=== PATIENT | male | born 1950 | race Caucasian/White ===

== ENCOUNTER 2019-02-28 21:29 | Emergency (ER) | payer OTHER ==
[2019-02-28] MEDS ORDERED: FENTANYL CITR 100 MCG/2 ML ONE (22:18)
[2019-02-28] MEDS ORDERED: NA CHLORIDE 0.9% 1,000 ML ONE (22:19)
[2019-02-28] MEDS ORDERED: KETOROLAC 30 MG/ML INJ ONE (22:19)
[2019-02-28 22:26] LABS: Urine Bacteria 20-50 /HPF (NONE SEEN); Urine Culture Reflex Order REFLEXED; Urine Mucus 2+ /HPF (NONE SEEN); Urine RBC >50 /HPF (NONE SEEN)
[2019-02-28 22:30] LABS: Urine Blood 2+ (NEG); Urine Glucose NEGATIVE (NEG); Urine Protein NEGATIVE (NEG); Urine Specific Gravity 1.025 (1.005-1.030)
[2019-02-28] MEDS ORDERED: CIPROFLOXACIN 400mg IV 400 MG/200 ML BAG IV ONE (22:59)
[2019-03-01] MEDS ORDERED: FENTANYL CITR 100 MCG/2 ML ONE (00:49)
--- NOTE | 2019-03-01 00:59 | ER ---
Nurse's Notes [facility] Name: Markos Hooks Age: 68 yrs Sex: Male : 1950 Arrival Date: 02/28/2019 Time: 21:32 Bed 8 Private MD: Diagnosis: Unspecified renal colic;Urinary tract infection, site not specified Presentation: 02/28 21:39 Presenting complaint: Patient states: "I started hurting in my right side around 3:00 aj1 and its gotten continually worse. I can't pee much, it kind of feels like a kidney stone". Transition of care: patient was not received from another setting of care. Onset of symptoms was February 28, 2019. Risk Assessment: Do you want to hurt yourself or someone else? Patient reports no desire to harm self or others. Initial Sepsis Screen: Does the patient meet any 2 criteria? No. Patient's initial sepsis screen is negative. Does the patient have a suspected source of infection? No. Patient's initial sepsis screen is negative. Care prior to arrival: None. 21:39 Method Of Arrival: Ambulatory aj1 21:39 Acuity: LADARIUS 3 aj1 Triage Assessment: 21:42 General: Appears in no apparent distress. uncomfortable, Behavior is calm, cooperative, aj1 appropriate for age. Pain: Pain currently is 10 out of 10 on a pain scale. Neuro: Level of Consciousness is awake, alert, obeys commands. Cardiovascular: Patient's skin is warm and dry. Respiratory: Airway is patent Respiratory effort is even, unlabored, Respiratory pattern is regular, symmetrical. GI:. : Reports inability to void. Historical: - Allergies: 21:42 No Known Allergies; aj1 - Home Meds: 21:42 amlodipine 5 mg tab 1 tab once daily [Active]; cholesterol medication [Active]; "heart aj1 burn medicine that starts with L" [Active]; - PMHx: 21:42 Hypertension; Hyperlipidemia; GERD; "fluid on the lung"; Diverticulitis; aj1 - PSHx: 21:42 Cholecystectomy; aj1 - Immunization history:: Flu vaccine is up to date. - Social history:: Smoking status: Patient/guardian denies using tobacco. - Ebola Screening: : Patient denies travel to an Ebola-affected area in the 21 days before illness onset. Screenin:31 Abuse screen: Denies threats or abuse. Nutritional screening: No deficits noted. ea Tuberculosis screening: No symptoms or risk factors identified. Fall Risk IV access (20 points). Assessment: 22:00 General: Appears uncomfortable, Behavior is calm, cooperative, appropriate for age. ea Pain: Complains of pain in right lower quadrant. Neuro: Level of Consciousness is awake, alert, obeys commands, Oriented to person, place, time, situation. Cardiovascular: Patient's skin is warm and dry. Respiratory: Airway is patent Respiratory effort is even, unlabored, Respiratory pattern is regular, symmetrical. Derm: Skin is pink, warm \\T\\ dry. 22:15 Reassessment: Patient and/or family updated on plan of care and expected duration. Pain ea level reassessed. Pt went to restroom reported relief after after urinating. States " the pain is there but it is 100 times better than it was". 23:11 Reassessment: Patient and/or family updated on plan of care and expected duration. Pain ea level reassessed. Patient is alert, oriented x 3, equal unlabored respirations, skin warm/dry/pink. Patient states feeling better. Patient states symptoms have improved. 03/01 00:28 Reassessment: Patient and/or family updated on plan of care and expected duration. Pain ea level reassessed. Patient is alert, oriented x 3, equal unlabored respirations, skin warm/dry/pink. Awaiting on CT results. 01:22 Reassessment: Patient and/or family updated on plan of care and expected duration. Pain ea level reassessed. Patient is alert, oriented x 3, equal unlabored respirations, skin warm/dry/pink. Discharge instruction given to patient, verbalized the understanding of instruction. Pt left ED ambulatory, accompanied by family, pttolerating well Patient states feeling better. Patient states symptoms have improved. Vital Signs: 02/28 21:42 BP 173 / 93; Pulse 81; Resp 18; Temp 97.5; Pulse Ox 96% on R/A; Weight 93.44 kg (R); aj1 Height 5 ft. 8 in. (172.72 cm) (R); Pain 10; 23:05 BP 146 / 72; Pulse 72; Resp 18; Pulse Ox 95% on R/A; ea 03/01 00:27 BP 139 / 67; Pulse 63; Resp 18; Pulse Ox 98% on R/A; ea 01:00 BP 130 / 60; Pulse 60; Resp 18; Temp 97.6; Pulse Ox 100% ; ea 02/28 21:42 Body Mass Index 31.32 (93.44 kg, 172.72 cm) aj1 ED Course: 02/28 21:32 Patient arrived in ED. cl3 21:40 Triage completed. aj1 21:42 Arm band placed on Patient placed in an exam room. aj1 21:46 Miranda Thomas FNP-C is PHCP. snw 21:46 Pelon Balbuena MD is Attending Physician. snw 21:58 Carleen Pearce RN is Primary Nurse. ea 22:30 Inserted saline lock: 20 gauge in right antecubital area, using aseptic technique. ea 22:32 Patient has correct armband on for positive identification. Bed in low position. Call ea light in reach. Side rails up X2. 23:00 CT Stone Protocol In Process Unspecified. EDMS 03/01 01:23 No provider procedures requiring assistance completed. IV discontinued, intact, ea bleeding controlled, No redness/swelling at site. Pressure dressing applied. Administered Medications: 02/28 22:30 Drug: TORadol 30 mg Route: IVP; Site: right antecubital; ea 22:50 Follow up: Response: No adverse reaction; Pain is decreased ea 22:31 Drug: NS 0.9% 1000 ml Route: IV; Rate: 1 bolus; Site: right antecubital; ea 03/01 01:00 Follow up: Response: No adverse reaction; IV Status: Completed infusion; IV Intake: ea 1000ml 02/28 22:31 Drug: fentaNYL (PF) 50 mcg {Note: RASS 1.} Route: IVP; Site: right antecubital; ea 03/01 00:56 Follow up: Response: No adverse reaction; Pain is decreased; RASS: Alert and Calm (0) ea 02/28 23:05 Drug: Cipro 400 mg Volume: 200 ml; Route: IVPB; Infused Over: 60 mins; Site: right ea antecubital; 03/01 01:13 Follow up: Response: No adverse reaction; IV Status: Completed infusion; IV Intake: ea 100ml 00:55 Drug: fentaNYL (PF) 50 mcg {Note: RASS 1 .} Route: IVP; Site: right antecubital; ea 01:20 Follow up: Response: No adverse reaction; Pain is decreased; RASS: Alert and Calm (0) ea Intake: 01:00 IV: 1000ml; Total: 1000ml. ea 01:13 IV: 100ml; Total: 1100ml. ea Outcome: 00:59 Discharge ordered by . snjennifer 01:23 Discharged to home ambulatory. ea 01:23 Condition: stable 01:23 Discharge instructions given to patient, Instructed on discharge instructions, follow up and referral plans. medication usage, Demonstrated understanding of instructions, follow-up care, medications. 01:23 Prescriptions given X 3. 01:24 Patient left the ED. ea Signatures: Dispatcher [employer] EDVandana Crain RN RN aj1 Miranda Thomas, [employer] Carleen Pearce RN RN ea Lewis, Charde cl3 Corrections: (The following items were deleted from the chart) 00:56 02/28 22:31 fentaNYL (PF) 50 mcg IVP in right antecubital ea ea 03/01 00:56 11 22:50 Response: No adverse reaction; Pain is decreased ea ea
--- NOTE | 2019-03-01 01:00 | EDPHYS ---
Physician Documentation [facility] Name: Markos Hooks Age: 68 yrs Sex: Male : 1950 Arrival Date: 02/28/2019 Time: 21:32 Bed 8 Private MD: ED Physician Pelon Balbuena HPI: 02/28 22:11 This 68 yrs old Male presents to ER via Ambulatory with complaints of snw Possible Kidney Stone. 22:11 Onset: The symptoms/episode began/occurred suddenly, today. Associated signs and snw symptoms: Pertinent positives: abdominal pain. Modifying factors: The patient symptoms are alleviated by nothing. The patient has not experienced similar symptoms in the past. The patient has not recently seen a physician. pt has had an appendectomy, right VATS procedure, cholecystectomy. Historical: - Allergies: 21:42 No Known Allergies; aj1 - Home Meds: 21:42 amlodipine 5 mg tab 1 tab once daily [Active]; cholesterol medication [Active]; "heart aj1 burn medicine that starts with L" [Active]; - PMHx: 21:42 Hypertension; Hyperlipidemia; GERD; "fluid on the lung"; Diverticulitis; aj1 - PSHx: 21:42 Cholecystectomy; aj1 - Immunization history:: Flu vaccine is up to date. - Social history:: Smoking status: Patient/guardian denies using tobacco. - Ebola Screening: : Patient denies travel to an Ebola-affected area in the 21 days before illness onset. ROS: 22:10 Constitutional: Negative for fever, chills, and weight loss, Eyes: Negative for injury, snw pain, redness, and discharge, ENT: Negative for injury, pain, and discharge, Neck: Negative for injury, pain, and swelling, Cardiovascular: Negative for chest pain, palpitations, and edema, Respiratory: Negative for shortness of breath, cough, wheezing, and pleuritic chest pain, Back: Negative for injury and pain, : Negative for injury, bleeding, discharge, and swelling, MS/Extremity: Negative for injury and deformity, Skin: Negative for injury, rash, and discoloration, Neuro: Negative for headache, weakness, numbness, tingling, and seizure, Psych: Negative for depression, anxiety, suicide ideation, homicidal ideation, and hallucinations. 22:10 Abdomen/GI: Positive for abdominal pain, of the right lower quadrant, radiation to right scrotal area. Exam: 22:10 Constitutional: This is a well developed, well nourished patient who is awake, alert, snw and in no acute distress. Head/Face: Normocephalic, atraumatic. Eyes: Pupils equal round and reactive to light, extra-ocular motions intact. Lids and lashes normal. Conjunctiva and sclera are non-icteric and not injected. Cornea within normal limits. Periorbital areas with no swelling, redness, or edema. ENT: Nares patent. No nasal discharge, no septal abnormalities noted. Tympanic membranes are normal and external auditory canals are clear. Oropharynx with no redness, swelling, or masses, exudates, or evidence of obstruction, uvula midline. Mucous membranes moist. Neck: Trachea midline, no thyromegaly or masses palpated, and no cervical lymphadenopathy. Supple, full range of motion without nuchal rigidity, or vertebral point tenderness. No Meningismus. Chest/axilla: Normal chest wall appearance and motion. Nontender with no deformity. No lesions are appreciated. Cardiovascular: Regular rate and rhythm with a normal S1 and S2. No gallops, murmurs, or rubs. Normal PMI, no JVD. No pulse deficits. Respiratory: Lungs have equal breath sounds bilaterally, clear to auscultation and percussion. No rales, rhonchi or wheezes noted. No increased work of breathing, no retractions or nasal flaring. Back: No spinal tenderness. No costovertebral tenderness. Full range of motion. Skin: Warm, dry with normal turgor. Normal color with no rashes, no lesions, and no evidence of cellulitis. MS/ Extremity: Pulses equal, no cyanosis. Neurovascular intact. Full, normal range of motion. Neuro: Awake and alert, GCS 15, oriented to person, place, time, and situation. Cranial nerves II-XII grossly intact. Motor strength 5/5 in all extremities. Sensory grossly intact. Cerebellar exam normal. Normal gait. Psych: Awake, alert, with orientation to person, place and time. Behavior, mood, and affect are within normal limits. 22:10 Abdomen/GI: Inspection: obese Bowel sounds: normal, Palpation: moderate abdominal tenderness, in the right lower quadrant. Vital Signs: 21:42 BP 173 / 93; Pulse 81; Resp 18; Temp 97.5; Pulse Ox 96% on R/A; Weight 93.44 kg (R); aj1 Height 5 ft. 8 in. (172.72 cm) (R); Pain 10/10; 23:05 BP 146 / 72; Pulse 72; Resp 18; Pulse Ox 95% on R/A; ea 03/01 00:27 BP 139 / 67; Pulse 63; Resp 18; Pulse Ox 98% on R/A; ea 01:00 BP 130 / 60; Pulse 60; Resp 18; Temp 97.6; Pulse Ox 100% ; ea 02/28 21:42 Body Mass Index 31.32 (93.44 kg, 172.72 cm) aj1 MDM: 02/28 22:04 Patient medically screened. snw 03/01 01:02 Data reviewed: vital signs, nurses notes. Data interpreted: Pulse oximetry: on room air snw is 98 %. Interpretation: normal. Counseling: I had a detailed discussion with the patient and/or guardian regarding: the historical points, exam findings, and any diagnostic results supporting the discharge/admit diagnosis, lab results, radiology results, the need for outpatient follow up, to return to the emergency department if symptoms worsen or persist or if there are any questions or concerns that arise at home. Special discussion: Based on the patient's Hx, exam, and Dx evaluation, there is no indication for emergent surgery or inpatient Tx. It is understood by the patient/guardian that if the Sx's persist or worsen they need to return immediately for re-evaluation. Based on the history and exam findings, there is no indication for further emergent testing or inpatient evaluation. I discussed with the patient/guardian the need to see the primary care provider for further evaluation of the symptoms. 02/28 21:46 Order name: Urine Microscopic Only; Complete Time: 22:31 snw 02/28 22:14 Order name: Urine Dipstick--Ancillary (enter results); Complete Time: 22:31 cm6 02/28 22:10 Order name: CT Stone Protocol snw 02/28 22:27 Order name: Urine Culture EDMS 02/28 21:46 Order name: Urine Dipstick-Ancillary (obtain specimen); Complete Time: 22:05 snw Administered Medications: 02/28 22:30 Drug: TORadol 30 mg Route: IVP; Site: right antecubital; ea 22:50 Follow up: Response: No adverse reaction; Pain is decreased ea 22:31 Drug: NS 0.9% 1000 ml Route: IV; Rate: 1 bolus; Site: right antecubital; ea 03/01 01:00 Follow up: Response: No adverse reaction; IV Status: Completed infusion; IV Intake: ea 1000ml 02/28 22:31 Drug: fentaNYL (PF) 50 mcg {Note: RASS 1.} Route: IVP; Site: right antecubital; ea 03/01 00:56 Follow up: Response: No adverse reaction; Pain is decreased; RASS: Alert and Calm (0) ea 02/28 23:05 Drug: Cipro 400 mg Volume: 200 ml; Route: IVPB; Infused Over: 60 mins; Site: right ea antecubital; 03/01 01:13 Follow up: Response: No adverse reaction; IV Status: Completed infusion; IV Intake: ea 100ml 00:55 Drug: fentaNYL (PF) 50 mcg {Note: RASS 1 .} Route: IVP; Site: right antecubital; ea 01:20 Follow up: Response: No adverse reaction; Pain is decreased; RASS: Alert and Calm (0) ea Disposition: 03:13 Co-signature as Attending Physician, Pelon Balbuena MD. rn Disposition: 03/01/19 00:59 Discharged to Home. Impression: Unspecified renal colic, Urinary tract infection, site not specified. - Condition is Stable. - Discharge Instructions: Kidney Stones, Renal Colic, Urinary Tract Infection, Adult, Dietary Guidelines to Help Prevent Kidney Stones, Rehydration, Adult. - Prescriptions for Cipro 500 mg Oral Tablet - take 1 tablet by ORAL route every 12 hours for 10 days; 20 tablet. Mobic 7.5 mg Oral Tablet - take 1 tablet by ORAL route once daily take with food; 10 tablet. Ultram 50 mg Oral Tablet - take 1 tablet by ORAL route every 6 hours As needed; 12 tablet. - Work release form, Medication Reconciliation Form, Thank You Letter, Antibiotic Education, Prescription Opioid Use form. - Follow up: Private Physician; When: 2 - 3 days; Reason: Recheck today's complaints, Continuance of care, Re-evaluation by your physician. Follow up: Emergency Department; When: As needed; Reason: Worsening of condition. Signatures: [facility] ED[facility]andana Crain RN RN aj1 Miranda Thomas, [employer] Pelon Balbuena MD MD rn Antunez, Elena, RN RN ea Corrections: (The following items were deleted from the chart) 01:24 00:59 03/01/2019 00:59 Discharged to Home. Impression: Unspecified renal colic; Urinary ea tract infection, site not specified. Condition is Stable. Forms are Medication Reconciliation Form, Thank You Letter, Antibiotic Education, Prescription Opioid Use. Follow up: Private Physician; When: 2 - 3 days; Reason: Recheck today's complaints, Continuance of care, Re-evaluation by your physician. Follow up: Emergency Department; When: As needed; Reason: Worsening of condition. snw
[2019-03-01 01:43] VITALS: BP 130/60; TEMP 97.6; O2SAT 100
--- NOTE | 2019-03-01 10:19 | RAD REPORT ---
EXAM DESCRIPTION: CT Abdomen and Pelvis Without Intravenous Contrast CLINICAL HISTORY: The patient is 68 years old and is Male; ABD PAIN TECHNIQUE: Axial computed tomography images of the abdomen and pelvis without intravenous contrast. Sagittal and coronal reformatted images were created and reviewed. This CT exam was performed usi ng one or more of the following dose reduction techniques: automated exposure control, adjustment o f the mA and/or kV according to patient size, and/or use of iterative reconstruction technique. COMPARISON: No relevant prior studies available. FINDINGS: LUNG BASES: Unremarkable. No mass. No consolidation. ABDOMEN: LIVER: There is a diffuse decrease in hepatic parenchymal density, consistent with fatty infiltr ation. The liver is enlarged. GALLBLADDER AND BILE DUCTS: Surgical clips are present in the right upper quadrant, consistent w ith previous cholecystectomy. PANCREAS: Unremarkable. No ductal dilation. SPLEEN: Unremarkable. ADRENALS: Unremarkable. No mass. KIDNEYS AND URETERS: Bilateral nonspecific perinephric stranding is present. Punctate bilateral intrarenal calcifications are noted. There is no hydronephrosis or hydroureter of either kidney. STOMACH AND BOWEL: The stomach is significantly distended with food contents. The small bowel is normal in caliber. A moderate amount stool is present throughout colon. No evidence of bowel obstruc tion. No significant bowel wall thickening. Colonic diverticulosis is noted, without associated infla mmatory changes to suggest diverticulitis. PELVIS: APPENDIX: No findings to suggest acute appendicitis. BLADDER: Unremarkable. No stones. REPRODUCTIVE: Unremarkable as visualized. ABDOMEN and PELVIS: INTRAPERITONEAL SPACE: Unremarkable. No free air. No significant fluid collection. BONES/JOINTS: Multilevel degenerative change of the spine is present. SOFT TISSUES: The soft tissues are normal. VASCULATURE: Unremarkable. No abdominal aortic aneurysm. LYMPH NODES: Unremarkable. No enlarged lymph nodes. IMPRESSION: 1. Colonic diverticulosis without evidence of diverticulitis. 2. Bilateral nephrolithiasis without obstruction. Electronically signed by: Portia Horta MD 02/28/2019 11:29 PM [employer] Due to temporary technical issues with the PACS/Fluency reporting system, reports are being signed by the in house radiologist as a courtesy to ensure prompt reporting. The interpreting radiologist is f ully responsible for the content of the report.
--- OUTSIDE RECORDS SUMMARY | 2019-03-05 02:25 | XMS REPORT ---
:1950 Author Organization [employer] Care Team Providers Name Role Phone Ana Brown Provider Role Unavailable Allergies, Adverse Reactions, Alerts Substance Reaction Event Type N.K.D.A. Info Not Available Non Drug Allergy Problems Problem Type Condition Code Onset Dates Condition Status Problem Hyperlipidemia, unspecified E78.5 Active hyperlipidemia type Problem Gastroesophageal reflux disease K21.9 Active without esophagitis Problem Erectile dysfunction, unspecified N52.9 Active erectile dysfunction type Problem Vitamin D deficiency E55.9 Active Problem Hyperglycemia R73.9 Active Problem Nocturia R35.1 Active Problem Reflux K21.9 Active Problem High cholesterol E78.00 Active Problem Diverticulitis K57.92 Active Problem Muscle cramps R25.2 Active Assessment Vitamin D deficiency E55.9 Active Assessment Gastroesophageal reflux disease K21.9 Active without esophagitis Assessment Erectile dysfunction, unspecified N52.9 Active erectile dysfunction type Assessment Muscle cramps R25.2 Active Assessment Essential hypertension I10 Active Assessment Hyperlipidemia, unspecified E78.5 Active hyperlipidemia type Problem Essential hypertension I10 Active Assessment Need for influenza vaccination Z23 Active Problem High blood pressure I10 Active Medications Medication Code Code Instructions Start End Status Dosage System Date Date Amlodipine [facility] 92777852048 5 MG Orally Active 1 tablet Besylate Twice a day Probiotic [facility] 52311798226 - Orally Active as directed Rosuvastatin [facility] 72496937827 10 MG Orally Active 1 tablet Calcium Every other day in the evening Fiber NDC 0 - Orally Active as directed Lansoprazole [facility] 77682365073 30 MG Orally Active 1 capsule Once a day Results No Known Results Immunizations Vaccine Administration Date FLUZONE HIGH DOSE OVER 65 Jan 31, 2019 Summary Purpose e[employer] Submission
== END 2019-03-01 01:24 | disposition home or self-care (01) ==
LOC: ER 21:29
DX: N39.0 Urinary tract infection, site not specified (principal); N23 Unspecified renal colic; I10 Essential (primary) hypertension; E78.5 Hyperlipidemia, unspecified
CPT/HCPCS: 87088; 87086; 76377; 74176; J3010 ×2; J7030; J0744; 81003; 81015; 96361; 96365; 96366; 96375; 99284

== ENCOUNTER 2025-02-06 11:05 | Emergency (ER) | payer OTHER ==
[2025-02-06] MEDS ORDERED: IBUPROFEN 400 MG TAB ONE (12:29)
[2025-02-06] MEDS ORDERED: IBUPROFEN 200 MG TAB PO ONE (12:29)
--- NOTE | 2025-02-06 13:07 | RAD REPORT ---
EXAMINATION: XR Ankle Left 3 View CLINICAL INDICATION: Male, 74 years old. [facility] Bed: TECHNIQUE: 3 view radiographs of the left ankle were obtained. COMPARISON: No prior exam. FINDINGS: Mildly displaced oblique distal fibular metaphysis fracture. Mild nonspecific widening of t he lateral clear space, however tibia fibular syndesmosis is not well evaluated on this nonweightbearing exam. Moderate degenerative changes predominantly at the midfoot. Soft tissue swelli ng about the ankle. Moderate calcaneal spur and enthesopathy at the Achilles tendon attachment. Vascular calcifications. IMPRESSION: Mildly displaced distal fibular fracture as above. If there is concern for syndesmotic disruption, ad ditional evaluation by weightbearing radiographs would provide improved assessment.
--- NOTE | 2025-02-06 13:16 | ER ---
Nurse's Notes [facility] Name: Markos Hooks Age: 74 yrs Sex: Male : 1950 Arrival Date: 02/06/2025 Time: 11:05 Bed 9 Private MD: Diagnosis: Displaced distal fibula fracture -left Presentation: 02/06 11:28 Chief complaint: Patient states: Fell yesterday, L ankle pain since. Coronavirus ll1 screen: Client denies travel out of the [place] in the last 14 days. At this time, the client does not indicate any symptoms associated with coronavirus-19. Ebola Screen: Patient denies travel to an Ebola-affected area in the 21 days before illness onset. Initial Sepsis Screen: Does the patient meet any 2 criteria? No. Patient's initial sepsis screen is negative. Does the patient have a suspected source of infection? No. Patient's initial sepsis screen is negative. Risk Assessment: Do you want to hurt yourself or someone else? Patient reports no desire to harm self or others. Onset of symptoms was February 05, 2025. 11:28 Method Of Arrival: Ambulatory ll1 11:28 Method Of Arrival: Wheelchair ll1 11:28 Acuity: LADARIUS 4 ll1 Triage Assessment: 11:28 General: Appears uncomfortable, Behavior is calm, cooperative, appropriate for age. ll1 Pain: Complains of pain in left lateral ankle Quality of pain is described as aching. Musculoskeletal: Circulation, motion, and sensation intact. Capillary refill < 3 seconds, in left toes. Reports pain in left lateral ankle. Injury Description: Bruise. Historical: - Allergies: 11: No Known Allergies; ll1 - PMHx: 11: Diverticulitis; GERD; Hyperlipidemia; Hypertension; ll1 - PSHx: 11:27 hand surgery (Hypertension); Appendectomy; ll1 - Immunization history:: Adult Immunizations up to date. - Infectious Disease History:: Denies. - Social history:: Smoking status: Patient denies any tobacco usage or history of. Screenin:35 [facility] ED Fall Risk Assessment (Adult) History of falling in the last 3 months, ll1 including since admission Yes- single mechanical fall (1 pt) Confusion or Disorientation No (0 pts) Intoxicated or Sedated No (0 pts) Impaired Gait Yes (1 pt) Mobility Assist Device Used Yes (1 pt) Altered Elimination No (0 pt) Score/Fall Risk Level 3 or more points = High Risk Maintained a safe environment, Hourly rounding (assess needs \T\ fall precautionary measures) done. Abuse screen: Denies threats or abuse. Nutritional screening: No deficits noted. Tuberculosis screening: No symptoms or risk factors identified. Assessment: 12:24 Reassessment: Patient and/or family updated on plan of care and expected duration. Pain ll1 level reassessed. Vital Signs: 11:28 BP 97 / 67; Pulse 62; Resp 17; Temp 97.8; Pulse Ox 97% ; Weight 84.37 kg; Height 5 ft. ll1 8 in. ; Pain 8/10; 13:40 BP 110 / 73; Pulse 68; Resp 16; Pulse Ox 98% on R/A; dd2 11:28 Body Mass Index 28.28 (84.37 kg, 172.72 cm) ll1 11:28 Pain Scale: Adult ll1 ED Course: 11:11 Patient arrived in ED. al6 11:12 Shahnaz Asencio [facility]NP[facility]C [facility] kb 11:12 Cleveland Leger MD is Attending Physician. kb 11:30 Triage completed. ll1 11:30 Arm band placed on. ll1 11:30 Patient has correct armband on for positive identification. Provided Education on: ER ll1 procedures and process. 12:24 Patient placed in an exam room, on a stretcher. ll1 12:54 Ankle Left 3 View XRAY In Process Unspecified. EDMS 13:15 Baljit Keller MD is Referral Physician. kb 13:36 No provider procedures requiring assistance completed. Patient did not have IV access ll1 during this emergency room visit. 13:39 Orthoglass splint: Posterior short lleg splint applied on left leg. dd2 Administered Medications: 12:30 Drug: Ibuprofen PO 600 mg PO once Route: PO; ll1 13:00 Follow up: Response: No adverse reaction dd2 Medication: 13:36 VIS not applicable for this client. ll1 Outcome: 13:15 Discharge ordered by . kb 13:36 Condition: stable ll1 13:40 Discharged to home with crutches, dd2 13:40 Discharge instructions given to patient, significant other, Instructed on discharge instructions, follow up and referral plans. medication usage, Demonstrated understanding of instructions, follow-up care, medications, Prescriptions given X 2, 13:41 Patient left the ED. dd2 Signatures: Dispatcher [employer] Shahnaz Roque, NIMESH MIRANDA-Duyen Fonseca RN RN ll1 CHANELLE SHAIKH RN RN dd2 [email or web address] Corrections: (The following items were deleted from the chart) 11:33 11:28 Resp 17bpm; Pulse Ox 97%; Temp 97.8F; 84.37 kg; Height 5 ft. 8 in.; BMI: 28.2; ll1 Pain 12/02, Adult; ll1
--- NOTE | 2025-02-06 13:16 | EDPHYS ---
Physician Documentation [facility] Name: Markos Hooks Age: 74 yrs Sex: Male : 1950 Arrival Date: 02/06/2025 Time: 11:05 Bed 9 Private MD: ED Physician Cleveland Leger HPI: 02/06 12:47 This 74 yrs old Male presents to ER via Wheelchair with complaints of Foot Injury. kb 12:47 Pt is a 74 year old male who presents for pain to left ankle after he tripped and fell yesterday. Denies any other injuries or trauma.. Historical: - Allergies: 11:27 No Known Allergies; ll1 - PMHx: 11:27 Diverticulitis; GERD; Hyperlipidemia; Hypertension; ll1 - PSHx: 11:27 hand surgery (Hypertension); Appendectomy; ll1 - Immunization history:: Adult Immunizations up to date. - Infectious Disease History:: Denies. - Social history:: Smoking status: Patient denies any tobacco usage or history of. ROS: 12:45 Constitutional: As per HPI kb Exam: 12:45 Constitutional: This is a well developed, well nourished patient who is awake, alert, kb and in no acute distress. Head/Face: Normocephalic, atraumatic. ENT: Moist Mucous membranes Cardiovascular: Regular rate Respiratory: Respirations even and unlabored. No increased work of breathing. Talking in full sentences Skin: Warm, dry with normal turgor. Normal color. Neuro: Awake and alert, GCS 15, oriented to person, place, time, and situation. 12:45 Musculoskeletal/extremity: Extremities: grossly normal except: noted in the left lateral ankle: pain, swelling, tenderness, ROM: intact in all extremities, Circulation is intact in all extremities. Sensation intact. Weight bearing: can bear weight with assistance only, Vital Signs: 11:28 BP 97 / 67; Pulse 62; Resp 17; Temp 97.8; Pulse Ox 97% ; Weight 84.37 kg; Height 5 ft. ll1 8 in. ; Pain 8/10; 13:40 BP 110 / 73; Pulse 68; Resp 16; Pulse Ox 98% on R/A; dd2 11:28 Body Mass Index 28.28 (84.37 kg, 172.72 cm) ll1 11:28 Pain Scale: Adult ll1 MDM: 11:12 Medical Screening Exam initiated kb 12:43 Differential diagnosis: Fracture, sprain, dislocation. Data reviewed: vital signs, kb nurses notes. Independent interpretation of the following test(s) in the Emergency Department X-Ray: My interpretation is Mildly displaced fibula fracture. Historians other than the Patient: Spouse/Significant Other: . Counseling: I had a detailed discussion with the patient and/or guardian regarding the historical points, exam findings, and any diagnostic results supporting the discharge/admit diagnosis, radiology results, the need for outpatient follow up, a family practitioner, to return to the emergency department if symptoms worsen or persist or if there are any questions or concerns that arise at home. 02/06 11:27 Order name: Ankle Left 3 View XRAY; Complete Time: 13:14 kb 02/06 12:44 Order name: Short Leg Splint; Complete Time: 13:14 kb 02/06 12:44 Order name: Crutch Training; Complete Time: 13:14 kb Administered Medications: 12:30 Drug: Ibuprofen PO 600 mg PO once Route: PO; ll1 13:00 Follow up: Response: No adverse reaction dd2 Disposition: 02/07 07:34 Co-signature as Attending Physician, Cleveland Leger MD I agree with the assessment and wale plan of care. Disposition Summary: 02/06/25 13:15 Discharge Ordered Notes: Location: Home Condition: Stable Diagnosis - Displaced distal fibula fracture -left Followup: kb - With: Private Physician - When: 2 - 3 days - Reason: Recheck today's complaints, Continuance of care, Re-evaluation by your physician Followup: kb - With: Emergency Department - When: As needed - Reason: Worsening of condition Followup: kb - With: Baljit Keller MD - When: 2 - 3 days - Reason: Recheck today's complaints Discharge Instructions: - Discharge Summary Sheet kb - Tibial and Fibular Fractures kb Forms: - Medication Reconciliation Form kb - Antibiotic Education kb - Prescription Opioid Use kb - Patient Portal Instructions kb - Leadership Thank You Letter kb Prescriptions: - Ibuprofen 600 mg Oral Tablet - take 1 tablet ORAL route every 6 hours As needed take with food; 30 tablet; kb Refills: 0, Product Selection Permitted Signatures: Dispatcher [employer] Shahnaz Roque FNP-C FNP-Cleveland Bernal MD MD cha Lewis, Lynsay, RN RN ll1 CHANELLE SHAIKH RN dd2
[2025-02-06 13:45] VITALS: TEMP 97.8
[2025-02-06 13:47] VITALS: BP 110/73; O2SAT 98
== END 2025-02-06 13:41 | disposition home or self-care (01) ==
LOC: ER 11:05
PROC: 2W3MX1Z Immobilization of Left Lower Extremity using Splint (ICD-10-PCS; principal; 2025-02-06)
DX: S82.832A Other fracture of upper and lower end of left fibula, initial encounter for closed fracture (principal); W01.0XXA Fall on same level from slipping, tripping and stumbling without subsequent striking against object, initial encounter
CPT/HCPCS: 99283